=== PATIENT | female | born 1990 | race African-American/Black ===

== ENCOUNTER 2019-06-23 18:52 | Inpatient (IN) | payer OTHER ==
[~2019-06-23] VITALS: Ht 160 cm; Wt 59.9 kg
[~2019-06-23 18:52] MED LIST: NITR50CA; PRENATAL VITS; UNK ANTIBIOTIC
[2019-06-23] MEDS ORDERED: SODIUM CHLORIDE 0.9% 1,000 ML IV ONE (20:33)
[2019-06-23 21:13] LABS: BASOPHILS % 0.4 % (0.0-2.0); HEMATOCRIT. 38.8 % (36.0-48.0); HEMOGLOBIN. 13.3 g/dL (12.0-16.0); LYMPHOCYTES % 33.3 % (20.0-50.0); MEAN CORPUSCULAR HEMOGLOBIN 30.9 pg (28.0-32.0); MEAN CORPUSCULAR VOLUME 89.9 fL (81.0-99.0); MEAN PLATELET VOLUME 7.5 fl (7.4-10.4); MONOCYTES % 7.1 % (2.0-8.0); NEUTROPHILS % 57.2 % (40.0-76.0); PLATELET 295 x1000/uL (130-400); RED BLOOD CELL COUNT 4.31 mill/uL (4.2-5.4); RED CELL DISTRIBUTION WIDTH 13.5 % (11.6-14.6)
[2019-06-23] MEDS ORDERED: KETOROLAC 30MG/ML VIAL IV ONE (21:15)
[2019-06-23 21:17] LABS: CHLORIDE 106 mEq/L (98-107)
[2019-06-23 21:19] LABS: INR 1.1; PROTHROMBIN TIME 11.1 sec (9.6-11.0)
[2019-06-23 21:23] LABS: CLARITY URINE TURBID (CLEAR); COLOR URINE ORANGE (YELLOW); KETONES URINE TRACE (NEGATIVE); LEUKOCYTE ESTERASE URINE 2+ (NEGATIVE); NITRITE URINE NEGATIVE (NEGATIVE); OCCULT BLOOD URINE 3+ (NEGATIVE); PH URINE 6.5 (4.5-8.0); PROTEIN URINE 1+ (NEGATIVE); SPECIFIC GRAVITY URINE 1.028 (1.005-1.030)
[2019-06-23 21:31] LABS: B-HCG QUANTITATIVE 34 mIU/mL (<3)
[2019-06-23 21:38] LABS: *BARBITURATES SCREEN URINE NEGATIVE (NEGATIVE); *BENZODIAZEPINES SCREEN URINE NEGATIVE (NEGATIVE)
[2019-06-23 21:39] LABS: *AMPHETAMINES SCREEN URINE NEGATIVE (NEGATIVE); *COCAINE SCREEN URINE NEGATIVE (NEGATIVE); CANNABINOID URINE SCREEN NEGATIVE (NEGATIVE); METHADONE URINE SCREEN NEGATIVE (NEGATIVE); OPIATES URINE SCREEN NEGATIVE (NEGATIVE); PHENCYCLIDINE URINE SCREEN NEGATIVE (NEGATIVE)
[2019-06-23] MEDS ORDERED: CEFTRIAXONE 1 G PREMIX 50 ML IV ONE (23:45)
[2019-06-24 04:00] VITALS: BP 121/70
[2019-06-24] MEDS ORDERED: ONDANSETRON HCL 4MG/2ML INJ IV PRN (06:00)
[2019-06-24] MEDS ORDERED: HYDROCODONE/ACETAMINOPHEN 5/325MG TABLET PO PRN (06:00)
[2019-06-24 08:00] VITALS: BP 119/80
[2019-06-24] MEDS ORDERED: POTASSIUM CHLORIDE 20MEQ/PACKET PO NR (08:45)
[2019-06-24 12:00] VITALS: BP 118/70
[2019-06-24] MEDS ORDERED: CIPR-213 MT (14:55)
[2019-06-24 15:19] VITALS: BP 122/74
[2019-06-24] MEDS ORDERED: CEFTRIAXONE 1 G PREMIX 50 ML IV SCH (21:00)
== END 2019-06-24 15:45 | disposition home or self-care (01) | DRG 254 ==
LOC: ER 19:00 → ENRESERV 22:57 → CANRESERV 22:57 → CANBEDREQ 23:43 → 6EST 06-24 00:07 → CANBEDREQ 06-24 00:18 → ENRESERV 06-24 02:08
PROVIDERS: ADMIT Internal Medicine; ATTEND Internal Medicine
DX: K43.2 Incisional hernia without obstruction or gangrene (principal); N39.0 Urinary tract infection, site not specified
CPT/HCPCS: 36415; 74176; 76830; 76856; 80305; 81003; 84484; 84702; 86850; 86900; 93005; 99285; J0696; J1885; J7030

== ENCOUNTER 2021-08-08 14:37 | Emergency (ER) | payer OTHER ==
[~2021-08-08] VITALS: Ht 160 cm; Wt 73.0 kg
[~2021-08-08 14:37] MED LIST changes: +CIPR500T5 MT
[2021-08-08] MEDS ORDERED: OXYM30SP26 BOTHNSTRLS (15:34)
[2021-08-08 15:50] VITALS: BP 128/67
== END 2021-08-08 15:50 | disposition home or self-care (01) ==
LOC: ER 14:37
DX: R04.0 Epistaxis (principal)
CPT/HCPCS: 99282

== ENCOUNTER 2021-11-08 01:35 | Inpatient (IN) | payer OTHER ==
[~2021-11-08] VITALS: Ht 167.6 cm; Wt 72.6 kg
[~2021-11-08 01:35] MED LIST changes: +OXYM30SP26 BOTHNSTRLS
[2021-11-08] MEDS ORDERED: ACETAMINOPHEN 325MG TABLET PO STA (02:06)
[2021-11-08] MEDS ORDERED: FAMOTIDINE 20MG/2ML VIAL IV STA (02:06)
[2021-11-08] MEDS ORDERED: SODIUM CHLORIDE 0.9% 1,000 ML IV ONE ×2 (02:15→04:00)
[2021-11-08 02:52] LABS: HEMATOCRIT. 35.9 % (36.0-48.0); HEMOGLOBIN. 12.4 g/dL (12.0-16.0); MEAN CORPUSCULAR HEMOGLOBIN 30.7 pg (28.0-32.0); MEAN CORPUSCULAR VOLUME 89.2 fL (81.0-99.0); MEAN PLATELET VOLUME 7.8 fl (7.4-10.4); PLATELET 265 x1000/uL (130-400); RED BLOOD CELL COUNT 4.03 mill/uL (4.2-5.4); RED CELL DISTRIBUTION WIDTH 13.2 % (11.6-14.6)
[2021-11-08 03:04] LABS: CHLORIDE 105 mEq/L (98-107)
[2021-11-08 03:19] LABS: HCG SCREEN POSITIVE
[2021-11-08] MEDS ORDERED: MORPHINE SULFATE 2 MG/ML CPJ (NOT FOR IM USE) IV ONE (04:00)
[2021-11-08 04:45] LABS: B-HCG QUANTITATIVE 42256 mIU/mL (<3)
[2021-11-08] MEDS ORDERED: FENTANYL CITRATE/PF 50MCG/ML 2ML VIAL ONE (05:17)
[2021-11-08] MEDS ORDERED: ROCURONIUM BROMIDE 10MG/ML VIAL 5ML IV ONE ×2 (05:17→06:02)
[2021-11-08] MEDS ORDERED: PROPOFOL 200MG/20ML VIAL IV ONE (05:18)
[2021-11-08] MEDS ORDERED: METOCLOPRAMIDE HCL 10MG/2ML VIAL ONE (05:18)
[2021-11-08] MEDS ORDERED: DEXAMETHASONE 4MG/ML 1ML VIAL ONE (05:18)
[2021-11-08] MEDS ORDERED: ONDANSETRON HCL 4MG/2ML INJ ONE (05:18)
[2021-11-08] MEDS ORDERED: MIDAZOLAM HCL 2 MG/2 ML VIAL ONE (05:18)
[2021-11-08] MEDS ORDERED: CEFAZOLIN SODIUM 1000MG/VIAL ONE (06:02)
[2021-11-08] MEDS ORDERED: KETOROLAC 30MG/ML VIAL ONE (06:09)
[2021-11-08] MEDS ORDERED: NEOSTIGMINE METHYLSULFATE 1MG/ML 10 ML VIAL ONE (06:10)
[2021-11-08] MEDS ORDERED: GLYCOPYRROLATE 0.2 MG/ML 2ML VIAL ONE ×2 (06:10→06:34)
[2021-11-08] MEDS ORDERED: LIDOCAINE HCL/PF 1% 10 MG/ML 5ML VIAL ONE (06:17)
[2021-11-08] MEDS ORDERED: ONDANSETRON HCL 4MG/2ML INJ IV PRN ×2 (06:30→06:45)
[2021-11-08] MEDS ORDERED: IBUPROFEN 400MG TABLET PO PRN (06:30)
[2021-11-08] MEDS ORDERED: ACETAMINOPHEN 500MG TABLET PO PRN (06:30)
[2021-11-08] MEDS ORDERED: MEPERIDINE HCL/PF 25MG/ML CPJ IV PRN (06:45)
[2021-11-08] MEDS ORDERED: FENTANYL CITRATE/PF 50MCG/ML 2ML VIAL IV PRN (06:45)
[2021-11-08] MEDS ORDERED: HYDROMORPHONE HCL/PF 2MG/ML CPJ IV PRN (06:45)
[2021-11-08] MEDS ORDERED: SODIUM CHLORIDE 0.9% 1,000 ML IV SCH (06:45)
[2021-11-08 07:21] LABS: PLATELET ESTIMATE NORMAL
[2021-11-08] MEDS ORDERED: LEVOFLOXACIN 500MG PREMIX 100 ML IV SCH (07:30)
[2021-11-08] MEDS ORDERED: KETOROLAC 30MG/ML VIAL IM SCH (07:30)
[2021-11-08] MEDS ORDERED: KETOROLAC 60MG/2ML VIAL IM SCH (07:30)
[2021-11-08 08:40] VITALS: BP 127/72
[2021-11-08] MEDS ORDERED: FERR325T6 MT (10:49)
[2021-11-08] MEDS ORDERED: CALC-26 MT (10:50)
[2021-11-08] MEDS: FAMOTIDINE 20MG/2ML VIAL IV SCH ×2 (11:10→23:23)
[2021-11-08] MEDS: HYDROCODONE/APAP 7.5/325MG 1 TAB TABLET PO PRN ×2 (11:10→22:10)
[2021-11-08] MEDS: DEXT 5%/0.45% NACL KCL 20MEQ/L 1,000 ML IV SCH ×2 (11:11→17:45)
[2021-11-08] MEDS ORDERED: NALOXONE HCL 0.4MG/ML VIAL IV PRN (11:15)
[2021-11-08] MEDS ORDERED: *PATIENT'S OWN MEDICATION STORAGE XX SCH (11:15)
[2021-11-08 12:00] VITALS: BP 118/59
[2021-11-08] MEDS: IBUPROFEN 800MG TABLET PO PRN (13:55)
[2021-11-08 16:00] VITALS: BP 111/50
[2021-11-08 20:00] VITALS: BP 110/51
[2021-11-09] VITALS: BP 95/44
[2021-11-09] MEDS: DEXT 5%/0.45% NACL KCL 20MEQ/L 1,000 ML IV SCH ×4 (02:30→23:29)
[2021-11-09] MEDS: HYDROCODONE/APAP 7.5/325MG 1 TAB TABLET PO PRN ×3 (02:32→21:06)
[2021-11-09 07:02] LABS: BASOPHILS % 0.1 % (0.0-2.0); EOSINOPHILS % 0.1 % (0.0-5.0); HEMATOCRIT. 23.1 % (36.0-48.0); HEMOGLOBIN. 7.9 g/dL (12.0-16.0); LYMPHOCYTES % 16.8 % (20.0-50.0); MEAN CORPUSCULAR HEMOGLOBIN 30.6 pg (28.0-32.0); MEAN CORPUSCULAR VOLUME 89.7 fL (81.0-99.0); MEAN PLATELET VOLUME 7.8 fl (7.4-10.4); MONOCYTES % 5.2 % (2.0-8.0); NEUTROPHILS % 77.8 % (40.0-76.0); PLATELET 197 x1000/uL (130-400); RED BLOOD CELL COUNT 2.57 mill/uL (4.2-5.4); RED CELL DISTRIBUTION WIDTH 13.5 % (11.6-14.6)
[2021-11-09 08:00] VITALS: BP 110/59
[2021-11-09] MEDS: IBUPROFEN 800MG TABLET PO PRN ×2 (08:47→17:27)
[2021-11-09] MEDS: FAMOTIDINE 20MG/2ML VIAL IV SCH ×2 (08:47→21:04)
[2021-11-09 12:00] VITALS: BP 103/56
[2021-11-09 16:00] VITALS: BP 107/65
[2021-11-09 20:00] VITALS: BP 120/60
[2021-11-09] MEDS ORDERED: DOCUSATE SODIUM 250MG CAPSULE PO PRN (21:45)
[2021-11-09] MEDS ORDERED: DOCUSATE SODIUM 100MG CAPSULE PO PRN (21:52)
[2021-11-10] VITALS: BP 124/73
[2021-11-10 04:00] VITALS: BP 134/76
[2021-11-10] MEDS ORDERED: BISACODYL 5MG TABLET PO PRN (04:00)
[2021-11-10] MEDS: ONDANSETRON HCL 4MG/2ML INJ IV PRN ×2 (04:11→11:26)
[2021-11-10] MEDS: HYDROCODONE/APAP 7.5/325MG 1 TAB TABLET PO PRN ×2 (04:57→11:28)
[2021-11-10] MEDS ORDERED: BISACODYL 10MG SUPP PR PRN (06:45)
[2021-11-10 06:56] LABS: CHLORIDE 109 mEq/L (98-107)
[2021-11-10 08:00] VITALS: BP 123/77
[2021-11-10] MEDS: FAMOTIDINE 20MG/2ML VIAL IV SCH ×2 (08:55→21:49)
[2021-11-10 11:37] VITALS: BP_SYST 134; BP_SYST 136; BP_DIAS 70; BP_DIAS 76
[2021-11-10] MEDS: DEXT 5%/0.45% NACL KCL 20MEQ/L 1,000 ML IV SCH (13:55)
[2021-11-10 16:00] VITALS: BP 124/65
[2021-11-10 20:00] VITALS: BP 119/67
[2021-11-11] VITALS: BP 129/73
[2021-11-11 04:00] VITALS: BP 129/73
[2021-11-11] MEDS: DEXT 5%/0.45% NACL KCL 20MEQ/L 1,000 ML IV SCH ×2 (05:19→14:30)
[2021-11-11 08:00] VITALS: BP 126/73
[2021-11-11] MEDS: FAMOTIDINE 20MG/2ML VIAL IV SCH ×2 (09:18→22:14)
[2021-11-11] MEDS: HYDROCODONE/APAP 7.5/325MG 1 TAB TABLET PO PRN (09:19)
[2021-11-11 12:00] VITALS: BP 122/67
[2021-11-11 16:00] VITALS: BP 103/78
[2021-11-11 20:00] VITALS: BP 124/66
[2021-11-12] VITALS: BP 119/65
[2021-11-12] MEDS: DEXT 5%/0.45% NACL KCL 20MEQ/L 1,000 ML IV SCH (00:30)
[2021-11-12 04:00] VITALS: BP 102/62
[2021-11-12 08:43] VITALS: BP 138/74
[2021-11-12 08:59] VITALS: BP 138/74
== END 2021-11-12 09:30 | disposition home or self-care (01) | DRG 547 ==
LOC: ER 01:35 → ORIP 05:50 → 6WST 08:37
PROVIDERS: ADMIT Specialist; ATTEND Specialist
PROC: 0UB50ZZ Excision of Right Fallopian Tube, Open Approach (ICD-10-PCS; principal; 2021-11-08)
DX: O00.101 Right tubal pregnancy without intrauterine pregnancy (principal); K66.1 Hemoperitoneum; E87.1 Hypo-osmolality and hyponatremia; O99.111 Other diseases of the blood and blood-forming organs and certain disorders involving the immune mechanism complicating pregnancy, first trimester; O23.521 Salpingo-oophoritis in pregnancy, first trimester; O26.891 Other specified pregnancy related conditions, first trimester; K76.0 Fatty (change of) liver, not elsewhere classified; R73.9 Hyperglycemia, unspecified; O99.281 Endocrine, nutritional and metabolic diseases complicating pregnancy, first trimester; D72.829 Elevated white blood cell count, unspecified; Z79.2 Long term (current) use of antibiotics; Z79.899 Other long term (current) drug therapy; Z3A.08 8 weeks gestation of pregnancy; H91.90 Unspecified hearing loss, unspecified ear; K59.00 Constipation, unspecified
CPT/HCPCS: 36415; 74018; 76705; 76801; 80048; 80053; 83605; 84702; 84703; 85025; 86850; 86900; 88302; 93005; 99291; J0690; J1100; J1170; J1885; J1956; J2175; J2250; J2270; J2405; J2704; J2710; J2765; J3010; J3490; J7030

== ENCOUNTER 2022-06-05 08:28 | Emergency (ER) | payer MEDICAID, OTHER ==
[~2022-06-05] VITALS: Ht 167.6 cm; Wt 79.0 kg
[2022-06-05] MEDS ORDERED: IBUPROFEN 400MG TABLET PO ONE (09:30)
[2022-06-05 09:32] VITALS: BP 141/83
== END 2022-06-05 09:37 | disposition home or self-care (01) ==
LOC: ER 08:28
DX: J02.9 Acute pharyngitis, unspecified (principal)
CPT/HCPCS: 99282

== ENCOUNTER 2022-07-24 12:36 | Emergency (ER) | payer OTHER ==
[~2022-07-24] VITALS: Ht 160 cm; Wt 64.0 kg
[2022-07-24 14:28] VITALS: BP 141/121
[2022-07-24] MEDS ORDERED: IBUPROFEN 600MG TABLET PO ONE (14:30)
[2022-07-24] MEDS ORDERED: IBUP-2029 MT (15:18)
== END 2022-07-24 15:55 | disposition home or self-care (01) ==
LOC: ER 12:36
DX: S93.491A Sprain of other ligament of right ankle, initial encounter (principal); R03.0 Elevated blood-pressure reading, without diagnosis of hypertension; W10.8XXA Fall (on) (from) other stairs and steps, initial encounter; Y93.01 Activity, walking, marching and hiking; Y92.89 Other specified places as the place of occurrence of the external cause
CPT/HCPCS: 73610; 81025; 99283

== ENCOUNTER 2023-03-23 12:49 | Emergency (ER) | payer OTHER ==
[~2023-03-23] VITALS: Ht 160 cm; Wt 72.0 kg
[~2023-03-23 12:49] MED LIST changes: -CIPR500T5 MT; +IBUP-2029 MT; -NITR50CA; -OXYM30SP26 BOTHNSTRLS; -PRENATAL VITS; -UNK ANTIBIOTIC
[2023-03-23 13:40] VITALS: O2SAT 100
[2023-03-23] MEDS ORDERED: MAGNESIUM/ALUMINUM HYDROXIDE/SIMETHICONE 30ML UDC PO STA (15:07)
[2023-03-23 15:25] LABS: CHLORIDE 105 mEq/L (98-107); INDEX HEMOLYSI 1 (1-3); INDEX ICTERIC 1 (1-4); INDEX LIPEMIC 1 (1-3); POTASSIUM 3.7 mEq/L (3.5-5.1); SODIUM 134 mEq/L (136-145)
[2023-03-23 15:26] LABS: BASOPHILS % 0.3 % (0.0-2.0); EOSINOPHILS % 0.9 % (0.0-5.0); HEMATOCRIT. 40.1 % (36.0-48.0); HEMOGLOBIN. 13.9 g/dL (12.0-16.0); LYMPHOCYTES % 24.9 % (20.0-50.0); MEAN CORPUSCULAR HEMOGLOBIN 31.1 pg (28.0-32.0); MEAN CORPUSCULAR HGB CONC 34.6 g/dL (31.0-37.0); MEAN CORPUSCULAR VOLUME 89.9 fL (81.0-99.0); MEAN PLATELET VOLUME 7.6 fl (7.4-10.4); NEUTROPHILS % 68.9 % (40.0-76.0); PLATELET 321 x1000/uL (130-400); RED BLOOD CELL COUNT 4.47 mill/uL (4.2-5.4); RED CELL DISTRIBUTION WIDTH 12.8 % (11.6-14.6); WHITE BLOOD COUNT 8.7 x1000/uL (4.5-11.0)
[2023-03-23 15:33] LABS: ALANINE AMINOTRANSFERASE 19 IU/L (13-61); ALBUMIN 3.8 g/dL (3.4-5.0); ASPARTATE AMINOTRANSFERASE 18 IU/L (15-37); CALCIUM 8.7 mg/dL (8.5-10.1); CARBON DIOXIDE 26 mEq/L (21-32); CREATININE 0.7 mg/dL (0.6-1.3); GLUCOSE 99 mg/dL (70-105); PROTEIN TOTAL 8.2 g/dL (6.0-8.3); UREA NITROGEN BLOOD 7 mg/dL (7-21)
[2023-03-23 15:51] LABS: HCG SCREEN NEGATIVE
[2023-03-23] MEDS ORDERED: OMEP40CA20 MT (17:22)
[2023-03-23 17:39] VITALS: BP 122/67; PULSE 78; RESP 18; TEMP 98.6
== END 2023-03-23 17:41 | disposition home or self-care (01) ==
LOC: ER 12:49
DX: R10.33 Periumbilical pain (principal)
CPT/HCPCS: 36415; 74176; 80053; 81025; 84703; 85025; 99284